=== PATIENT | male | born 1970 | race Caucasian/White ===

== ENCOUNTER 2021-02-15 00:59 | Inpatient (IN) | payer OTHER ==
[2021-02-15] MEDS ORDERED: Aspirin Chewable 81 MG TAB ONE ×2 (01:23→01:24)
[2021-02-15 01:29] LABS: #Basophils 0.1 10x3/uL (0.0-0.2); #Eosinphils 0.2 10x3/uL (0.0-0.5); #Monocytes 0.7 10x3/uL (0.0-1.1); #Neutrophils 5.7 10x3/uL (1.5-8.4); %Lymphocytes 29.5 % (18.0-47.0); %Monocytes 7.7 % (0.0-10.0); %Neutrophils 59.1 % (40.0-75.0); Hemoglobin 17.7 g/dL (13.5-17.5); Mean Corpuscular HGB CONC 36.2 g/dL (32.0-36.0); Mean Corpuscular Hemoglobin 31.6 pg (27.0-33.0); Mean Corpuscular Volume 87.2 fl (81.2-95.1); Platelet Count 308 10x3/uL (150-450); RBC Distribution Width 12.8 % (11.5-14.5); Red Blood Cell (RBC) Count 5.61 10x6/uL (4.32-5.72); White Blood Cell (WBC) Count 9.6 10x3/uL (3.5-10.5)
[2021-02-15] MEDS ORDERED: Nitroglycerin 2% Ointment 1 INCH/1 GM Packet ONE (01:30)
[2021-02-15 02:01] LABS: ALT (SGPT) 58 U/L (8-55); AST (SGOT) 27 U/L (5-34); Albumin 4.2 g/dL (3.5-5.0); Alkaline Phosphatase 86 U/L (40-110); Anion Gap 18 mmol/L (10-20); BUN (Urea Nitrogen) 21 mg/dL (8.9-20.6); Bilirubin, Total 0.5 mg/dL (0.2-1.2); Calc. Creatinine Clearance 0 mL/min (70-130); Calcium 9.2 mg/dL (7.8-10.44); Carbon Dioxide 20 mmol/L (22-29); Chloride 101 mmol/L (98-107); Glucose 398 mg/dL (70-105); Protein, Total 7.2 g/dL (6.0-8.3); Sodium 135 mmol/L (136-145)
[2021-02-15 03:14] LABS: SARS-CoV-2 NAA Rapid Test Not Detected (NotDetected)
[2021-02-15] MEDS ORDERED: Nitroglycerin 0.4 MG TAB (25 Tab Bottle) SL PRN (04:01)
[2021-02-15] MEDS ORDERED: Dextrose 50% Abboject 50 ML SYRINGE SLOW IVP PRN (04:09)
[2021-02-15] MEDS ORDERED: Dextrose 5% in Water 1,000 ML IV PRN (04:09)
[2021-02-15] MEDS ORDERED: Sodium Chloride 0.9% 1,000 ML IV SCH ×2 (04:15→16:00)
[2021-02-15] MEDS ORDERED: Insulin Regular 300 UNITS/3 ML VIAL IVP SCH (04:45)
[2021-02-15 05:16] VITALS: BMI 36.3
[2021-02-15] MEDS: HumaLOG 300 UNITS/3 ML VIAL SC PRN (05:19)
[2021-02-15 05:29] LABS: Cholesterol 217 mg/dl (< 200 Desired); HDL Cholesterol 31 mg/dL (>60 Neg Risk); Triglycerides 463 mg/dL (Less than 150)
[2021-02-15 05:35] LABS: Troponin I 0.306 ng/mL (< 0.028)
[2021-02-15] MEDS ORDERED: Enoxaparin Sodium 40 MG/0.4 ML SYRINGE SC SCH (09:00)
[2021-02-15 09:26] LABS: INR-International Normal Ratio 0.9; PTT 22.9 sec (22.0-33.0); Prothrombin Time 10.3 sec (9.5-12.1)
[2021-02-15 09:31] LABS: Hemoglobin A1c 7.6 % (4.0-6.0)
[2021-02-15] MEDS: Aspirin Chewable 81 MG TAB PO SCH (09:46)
[2021-02-15] MEDS: Nitroglycerin 2% Ointment 1 INCH/1 GM Packet TOP SCH ×3 (09:46→20:30)
[2021-02-15] MEDS: Lisinopril 20 MG TAB PO SCH (09:47)
[2021-02-15] MEDS: Hydrochlorothiazide 25 MG TAB PO SCH (09:47)
[2021-02-15 09:53] LABS: Troponin I 0.872 ng/mL (< 0.028)
[2021-02-15] MEDS: Enoxaparin Sodium 120 MG/0.8 ML SYRINGE SC SCH (10:00)
[2021-02-15] MEDS: Lantus 1000 UNITS/10 ML VIAL SC SCH (10:00)
[2021-02-15] MEDS: Acetaminophen 325 MG TAB PO PRN (12:08)
[2021-02-15] MEDS ORDERED: Nitroglycerin 50 MG/250 ML BOT 250 ML ONE (13:18)
[2021-02-15] MEDS ORDERED: Heparin 10,000 UNITS/ 10 ML VIAL ONE (13:18)
[2021-02-15] MEDS ORDERED: Lidocaine 1% (PF) 30 ML VIAL ONE (13:18)
[2021-02-15 13:19] LABS: CKMB 8.8 ng/mL (0-6.6)
[2021-02-15] MEDS ORDERED: Adenosine 6 MG/2 ML VIAL ONE (13:19)
[2021-02-15] MEDS ORDERED: Fentanyl 100 MCG/2 ML VIAL ONE (13:57)
[2021-02-15] MEDS ORDERED: Midazolam HCl 2 mg/2 ml Vial ONE (13:58)
[2021-02-15] MEDS ORDERED: Clopidogrel Bisulfate 300 MG TAB ONE (15:11)
[2021-02-15] MEDS ORDERED: cloNIDine 0.1 MG TAB ONE (15:29)
[2021-02-15] MEDS ORDERED: Acetaminophen/Codeine 30-300mg Tablet PO PRN ×2 (15:55)
[2021-02-15] MEDS ORDERED: Acetaminophen 500 MG TAB PO SCH (16:15)
[2021-02-15] MEDS ORDERED: Furosemide 40 MG/4 ML VIAL ONE (17:51)
[2021-02-15] MEDS ORDERED: Furosemide 40 MG/4 ML VIAL SLOW IVP SCH ×2 (18:00)
[2021-02-15] MEDS ORDERED: hydrALAZINE 20 MG/ML VIAL SLOW IVP SCH ×2 (18:15→20:30)
[2021-02-15] MEDS ORDERED: Metoprolol Tartrate 5 MG/5 ML VIAL IVP PRN (20:20)
[2021-02-15] MEDS ORDERED: Zolpidem Tartrate 5 MG TAB PO SCH (21:00)
[2021-02-15] MEDS ORDERED: Dexmedetomidine In 0.9 % NaCl 100 ML ONE (21:20)
[2021-02-15] MEDS: Atorvastatin Calcium 40 MG TAB PO SCH (21:41)
[2021-02-15] MEDS: Clopidogrel Bisulfate 75 MG TAB PO SCH (21:41)
[2021-02-15] MEDS ORDERED: niCARdipine 25 MG in Sodium Chloride 0.9% 250 ML 250 ML IVPB SCH (22:00)
[2021-02-15] MEDS ORDERED: Ondansetron PF 4 MG/2 ML Vial IVP PRN (22:00)
[2021-02-15] MEDS ORDERED: Lorazepam 2 MG/ML VIAL SLOW IVP SCH (22:15)
[2021-02-15] MEDS ORDERED: Lorazepam 2 MG/ML VIAL ONE ×2 (22:16→23:37)
[2021-02-16] MEDS ORDERED: Lorazepam 2 MG/ML VIAL SLOW IVP SCH
[2021-02-16] MEDS: Dexmedetomidine In 0.9 % NaCl 400 MCG in Premix Bag 1 BAG IVPB SCH ×5 (00:24→23:12)
[2021-02-16 01:09] LABS: #Monocytes 0.4 10x3/uL (0.0-1.1); #Neutrophils 15.1 10x3/uL (1.5-8.4); %Basophils 0.2 % (0.0-2.0); %Lymphocytes 3.8 % (18.0-47.0); %Monocytes 2.2 % (0.0-10.0); %Neutrophils 93.2 % (40.0-75.0); Hemoglobin 16.2 g/dL (13.5-17.5); Mean Corpuscular HGB CONC 36.7 g/dL (32.0-36.0); Mean Corpuscular Hemoglobin 31.1 pg (27.0-33.0); Mean Corpuscular Volume 84.8 fl (81.2-95.1); Mean Platelet Volume 11.2 fl (7.4-10.4); Platelet Count 291 10x3/uL (150-450); RBC Distribution Width 12.7 % (11.5-14.5); Red Blood Cell (RBC) Count 5.21 10x6/uL (4.32-5.72); White Blood Cell (WBC) Count 16.2 10x3/uL (3.5-10.5)
[2021-02-16 01:12] LABS: Actual Bicarbonate (HCO3a) 19.3 mEq/L (22-28); Base Excess (BEa) -2.1 mEq/L (-2.0 to +3.0); CO2 Tension 26.2 mmHg (35.0-45.0); Calcium, Ionized (arterial) 1.03 mmol/L (1.12-1.30); Carboxyhemoglobin (COHb) 0.9 gm% (0.0-3.0); Hemoglobin (Hb) 16.5 g/dL (14.0-18.0); O2 Tension (PaO2), arterial 48.4 mmHg (80.0-100.0); Puncture Site Other Site; pH, Arterial 7.49 (7.35-7.45)
[2021-02-16] MEDS ORDERED: Lorazepam 20 MG/10ML 100 MG in Sodium Chloride 0.9% 50 ML IVPB SCH ×2 (01:15→17:45)
[2021-02-16 01:26] LABS: Anion Gap 23 mmol/L (10-20); BUN (Urea Nitrogen) 14 mg/dL (8.9-20.6); Calc. Creatinine Clearance 131 mL/min (70-130); Calcium 8.5 mg/dL (7.8-10.44); Carbon Dioxide 17 mmol/L (22-29); Chloride 101 mmol/L (98-107); Glucose 364 mg/dL (70-105); Potassium 4.2 mmol/L (3.5-5.1); Sodium 137 mmol/L (136-145)
[2021-02-16 01:28] LABS: Magnesium 1.5 mg/dL (1.6-2.6)
[2021-02-16] MEDS ORDERED: Pantoprazole 40 MG VIAL IVP SCH (01:45)
[2021-02-16] MEDS: Nitroglycerin 2% Ointment 1 INCH/1 GM Packet TOP SCH ×4 (02:23→19:38)
[2021-02-16] MEDS: HumaLOG 300 UNITS/3 ML VIAL SC PRN ×4 (02:34→21:48)
[2021-02-16 03:27] LABS: Bilirubin Neg (Negative); Blood, Urine 250 (Negative); Clarity Slightly Cloudy (Clear); Glucose, Urine (Dipstick) >=1000 mg/dL (Negative); Ketone, Urine 50 mg/dL (Negative); Leukocyte 25 (Negative); Nitrite Negative (Negative); Protein, Urine (Dipstick) 15 mg/dl (Neg-Trace); Urobilinogen Normal mg/dL (Less than 2)
[2021-02-16 03:35] LABS: Bacteria/HPF None Seen HPF (None Seen); Mucous/LPF None Seen LPF (<2+); RBC/HPF 21-50 HPF (0-3); Squamous Epithelial 0-3 HPF (0-3); WBC/HPF 0-3 HPF (0-3)
[2021-02-16 04:06] LABS: #Monocytes 0.3 10x3/uL (0.0-1.1); #Neutrophils 10.7 10x3/uL (1.5-8.4); %Basophils 0.2 % (0.0-2.0); %Lymphocytes 5.1 % (18.0-47.0); %Monocytes 2.7 % (0.0-10.0); %Neutrophils 91.5 % (40.0-75.0); Hemoglobin 15.6 g/dL (13.5-17.5); Mean Corpuscular HGB CONC 36.8 g/dL (32.0-36.0); Mean Corpuscular Hemoglobin 31.3 pg (27.0-33.0); Platelet Count 239 10x3/uL (150-450); RBC Distribution Width 12.8 % (11.5-14.5); Red Blood Cell (RBC) Count 4.99 10x6/uL (4.32-5.72); White Blood Cell (WBC) Count 11.6 10x3/uL (3.5-10.5)
[2021-02-16 04:14] LABS: ALT (SGPT) 51 U/L (8-55); AST (SGOT) 22 U/L (5-34); Alkaline Phosphatase 82 U/L (40-110); Anion Gap 17 mmol/L (10-20); BUN (Urea Nitrogen) 14 mg/dL (8.9-20.6); Calc. Creatinine Clearance 137 mL/min (70-130); Calcium 8.6 mg/dL (7.8-10.44); Carbon Dioxide 21 mmol/L (22-29); Chloride 104 mmol/L (98-107); Globulin 2.7 g/dL (2.4-3.5); Glucose 298 mg/dL (70-105); Magnesium 1.6 mg/dL (1.6-2.6); Potassium 3.7 mmol/L (3.5-5.1); Protein, Total 6.7 g/dL (6.0-8.3); Sodium 138 mmol/L (136-145)
[2021-02-16 04:37] LABS: CKMB 3.4 ng/mL (0-6.6)
[2021-02-16] MEDS ORDERED: HumaLOG 300 UNITS/3 ML VIAL SC SCH (05:15)
[2021-02-16] MEDS ORDERED: FLU VACC QS2021-22(6MOS UP)/PF 60 MCG/0.5 ML SYRINGE IM ONE (09:00)
[2021-02-16] MEDS ORDERED: Potassium Chloride 20 MEQ in Premix Bag 1 BAG IVPB SCH (09:00)
[2021-02-16] MEDS ORDERED: Aspirin 300 MG Suppository PR SCH (09:00)
[2021-02-16] MEDS: Lantus 1000 UNITS/10 ML VIAL SC SCH (09:28)
[2021-02-16] MEDS ORDERED: PHENobarbital Sodium 65 MG/ML VIAL SLOW IVP SCH ×2 (10:30→11:00)
[2021-02-16] MEDS: Aspirin Chewable 81 MG TAB PO SCH (11:03)
[2021-02-16] MEDS: Hydrochlorothiazide 25 MG TAB PO SCH (11:34)
[2021-02-16] MEDS ORDERED: Enoxaparin Sodium 60 MG/0.6 ML SYRINGE SC SCH (14:30)
[2021-02-16] MEDS: PHENobarbital Sodium 65 MG/ML VIAL SLOW IVP SCH ×3 (15:07→23:11)
[2021-02-16 15:37] LABS: Actual Bicarbonate (HCO3v) 25 mEq/L (22-28); Base Excess 1.2 mEq/L (-2.0 to +3.0); Calcium, Ionized (venous) 1.15 mmol/L (1.16-1.32); Chloride (VBG) 103 mmol/L (98-106); Hemoglobin (Hb) 15.9 g/dL (13.1-17.2); Potassium (VBG) 3.76 mmol/L (3.70-5.30); Puncture Site RRA; Sodium 137.1 mmol/L (133-146); pH (venous) 7.43 (7.32-7.43)
[2021-02-16] MEDS: Clopidogrel Bisulfate 75 MG TAB PO SCH (18:25)
[2021-02-16] MEDS ORDERED: Pantoprazole 40 MG VIAL ONE (19:33)
[2021-02-16] MEDS: Pantoprazole 40 MG VIAL IVP SCH (19:38)
[2021-02-16] MEDS: Enoxaparin Sodium 40 MG/0.4 ML SYRINGE SC SCH (19:39)
[2021-02-16] MEDS: Atorvastatin Calcium 40 MG TAB PO SCH (21:45)
[2021-02-17] MEDS: HumaLOG 300 UNITS/3 ML VIAL SC PRN ×5 (00:05→08:24)
[2021-02-17] MEDS: PHENobarbital Sodium 65 MG/ML VIAL SLOW IVP SCH ×6 (02:55→21:52)
[2021-02-17] MEDS: Nitroglycerin 2% Ointment 1 INCH/1 GM Packet TOP SCH ×4 (02:55→21:36)
[2021-02-17] MEDS: Dexmedetomidine In 0.9 % NaCl 400 MCG in Premix Bag 1 BAG IVPB SCH ×3 (03:46→10:57)
[2021-02-17 06:33] LABS: Anion Gap 14 mmol/L (10-20); BUN (Urea Nitrogen) 20 mg/dL (8.9-20.6); Calc. Creatinine Clearance 137 mL/min (70-130); Calcium 8.7 mg/dL (7.8-10.44); Carbon Dioxide 24 mmol/L (22-29); Chloride 106 mmol/L (98-107); Glucose 207 mg/dL (70-105); Magnesium 2.1 mg/dL (1.6-2.6); Potassium 3.9 mmol/L (3.5-5.1); Sodium 140 mmol/L (136-145)
[2021-02-17 06:41] LABS: #Basophils 0.1 10x3/uL (0.0-0.2); #Eosinphils 0.1 10x3/uL (0.0-0.5); #Monocytes 0.8 10x3/uL (0.0-1.1); #Neutrophils 10.7 10x3/uL (1.5-8.4); %Basophils 0.4 % (0.0-2.0); %Eosinophils 0.6 % (0.0-6.0); %Lymphocytes 7.8 % (18.0-47.0); %Monocytes 6.5 % (0.0-10.0); %Neutrophils 84.2 % (40.0-75.0); Hemoglobin 14.9 g/dL (13.5-17.5); Mean Corpuscular HGB CONC 34.4 g/dL (32.0-36.0); Mean Platelet Volume 11.2 fl (7.4-10.4); Platelet Count 215 10x3/uL (150-450); RBC Distribution Width 12.8 % (11.5-14.5); Red Blood Cell (RBC) Count 4.81 10x6/uL (4.32-5.72); White Blood Cell (WBC) Count 12.8 10x3/uL (3.5-10.5)
[2021-02-17] MEDS: Lantus 1000 UNITS/10 ML VIAL SC SCH (08:24)
[2021-02-17] MEDS: Enoxaparin Sodium 120 MG/0.8 ML SYRINGE SC SCH (08:58)
[2021-02-17] MEDS: Aspirin Chewable 81 MG TAB PO SCH (10:34)
[2021-02-17] MEDS: Hydrochlorothiazide 25 MG TAB PO SCH (10:34)
[2021-02-17] MEDS: Lisinopril 20 MG TAB PO SCH (10:34)
[2021-02-17] MEDS ORDERED: Metoprolol Tartrate 5 MG/5 ML VIAL IVP SCH (15:00)
[2021-02-17] MEDS ORDERED: Enoxaparin Sodium 60 MG/0.6 ML SYRINGE SC SCH (18:00)
[2021-02-17] MEDS ORDERED: Thiamine HCl 200 MG/2 ML VIAL SLOW IVP SCH (21:30)
[2021-02-17] MEDS ORDERED: Multivitamins, Adult 10 ML, Thiamine HCl 100 MG, Folic Acid 1 MG in Dextrose 5 %-0.45 %... IV ONE (21:30)
[2021-02-17] MEDS: Lorazepam 2 MG/ML VIAL SLOW IVP PRN (21:36)
[2021-02-17] MEDS: Enoxaparin Sodium 40 MG/0.4 ML SYRINGE SC SCH (21:36)
[2021-02-17] MEDS: Pantoprazole 40 MG VIAL IVP SCH (21:36)
[2021-02-17] MEDS: Atorvastatin Calcium 40 MG TAB PO SCH (21:52)
[2021-02-17] MEDS: Clopidogrel Bisulfate 75 MG TAB PO SCH (21:52)
[2021-02-18] MEDS ORDERED: Metoprolol Tartrate 5 MG/5 ML VIAL IVP SCH ×3 (00:30→14:00)
[2021-02-18] MEDS: Dexmedetomidine In 0.9 % NaCl 400 MCG in Premix Bag 1 BAG IVPB SCH ×2 (00:33→10:38)
[2021-02-18] MEDS: Nitroglycerin 2% Ointment 1 INCH/1 GM Packet TOP SCH ×4 (03:14→21:00)
[2021-02-18] MEDS: Lorazepam 2 MG/ML VIAL SLOW IVP PRN (04:05)
[2021-02-18] MEDS: HumaLOG 300 UNITS/3 ML VIAL SC PRN ×3 (04:56→23:45)
[2021-02-18] MEDS ORDERED: PHENobarbital Sodium 65 MG/ML VIAL SLOW IVP SCH (06:00)
[2021-02-18 06:13] LABS: #Basophils 0.1 10x3/uL (0.0-0.2); #Eosinphils 0.1 10x3/uL (0.0-0.5); #Monocytes 0.8 10x3/uL (0.0-1.1); #Neutrophils 8.9 10x3/uL (1.5-8.4); %Basophils 0.4 % (0.0-2.0); %Lymphocytes 10.9 % (18.0-47.0); %Monocytes 6.9 % (0.0-10.0); %Neutrophils 80.3 % (40.0-75.0); Hemoglobin 14.7 g/dL (13.5-17.5); Mean Corpuscular HGB CONC 35.4 g/dL (32.0-36.0); Mean Corpuscular Hemoglobin 30.9 pg (27.0-33.0); Mean Corpuscular Volume 87.4 fl (81.2-95.1); Mean Platelet Volume 10.7 fl (7.4-10.4); Platelet Count 209 10x3/uL (150-450); RBC Distribution Width 12.8 % (11.5-14.5); Red Blood Cell (RBC) Count 4.75 10x6/uL (4.32-5.72); White Blood Cell (WBC) Count 11.1 10x3/uL (3.5-10.5)
[2021-02-18 06:15] LABS: ALT (SGPT) 36 U/L (8-55); AST (SGOT) 20 U/L (5-34); Albumin 3.8 g/dL (3.5-5.0); Alkaline Phosphatase 87 U/L (40-110); Anion Gap 17 mmol/L (10-20); BUN (Urea Nitrogen) 13 mg/dL (8.9-20.6); Bilirubin, Total 1.6 mg/dL (0.2-1.2); Calc. Creatinine Clearance 153 mL/min (70-130); Calcium 8.7 mg/dL (7.8-10.44); Carbon Dioxide 21 mmol/L (22-29); Chloride 105 mmol/L (98-107); Globulin 3.1 g/dL (2.4-3.5); Glucose 247 mg/dL (70-105); Magnesium 2.1 mg/dL (1.6-2.6); Phosphorus 2.7 mg/dL (2.3-4.7); Potassium 3.4 mmol/L (3.5-5.1); Protein, Total 6.9 g/dL (6.0-8.3); Sodium 140 mmol/L (136-145)
[2021-02-18] MEDS ORDERED: Aspirin 300 MG Suppository PR SCH (09:00)
[2021-02-18] MEDS: Lisinopril 20 MG TAB PO SCH ×2 (09:07→14:25)
[2021-02-18] MEDS: Hydrochlorothiazide 25 MG TAB PO SCH (09:07)
[2021-02-18] MEDS: Lantus 1000 UNITS/10 ML VIAL SC SCH (09:08)
[2021-02-18] MEDS: Clopidogrel Bisulfate 75 MG TAB PO SCH (14:26)
[2021-02-18] MEDS: Atorvastatin Calcium 40 MG TAB PO SCH (21:01)
[2021-02-18] MEDS: Pantoprazole 40 MG VIAL IVP SCH (21:01)
[2021-02-18] MEDS: Enoxaparin Sodium 40 MG/0.4 ML SYRINGE SC SCH (21:01)
[2021-02-18] MEDS: Labetalol HCl 100 MG/20 ML VIAL SLOW IVP PRN (22:12)
[2021-02-18] MEDS ORDERED: Nitroglycerin 2% Ointment 1 INCH/1 GM Packet TOP SCH (22:15)
[2021-02-18] MEDS: Acetaminophen 325 MG TAB PO PRN (22:16)
[2021-02-19] MEDS: Nitroglycerin 2% Ointment 1 INCH/1 GM Packet TOP SCH ×5 (01:54→21:22)
[2021-02-19] MEDS: Hydrochlorothiazide 25 MG TAB PO SCH (08:33)
[2021-02-19] MEDS: Aspirin 81 mg Enteric Coated Tablet PO SCH (08:33)
[2021-02-19] MEDS: Lisinopril 20 MG TAB PO SCH ×2 (08:33→21:14)
[2021-02-19] MEDS: Lantus 1000 UNITS/10 ML VIAL SC SCH (08:35)
[2021-02-19] MEDS: HumaLOG 300 UNITS/3 ML VIAL SC PRN ×2 (08:35→11:58)
[2021-02-19] MEDS ORDERED: Potassium Chloride 20 MEQ TAB PO SCH (13:00)
[2021-02-19] MEDS: Labetalol HCl 100 MG/20 ML VIAL SLOW IVP PRN (16:59)
[2021-02-19] MEDS: Atorvastatin Calcium 40 MG TAB PO SCH (21:14)
[2021-02-19] MEDS: Pantoprazole 40 MG VIAL IVP SCH (21:14)
[2021-02-19] MEDS: Enoxaparin Sodium 40 MG/0.4 ML SYRINGE SC SCH (21:15)
[2021-02-19] MEDS ORDERED: Clopidogrel Bisulfate 300 MG TAB PO SCH (21:15)
[2021-02-19] MEDS ORDERED: Clopidogrel Bisulfate 75 MG TAB PO SCH (21:30)
[2021-02-19] MEDS: Clopidogrel Bisulfate 75 MG TAB PO SCH (21:35)
[2021-02-19] MEDS ORDERED: Zolpidem Tartrate 5 MG TAB PO SCH (23:00)
[2021-02-20] MEDS: Nitroglycerin 2% Ointment 1 INCH/1 GM Packet TOP SCH ×2 (02:26→08:42)
[2021-02-20] MEDS: HumaLOG 300 UNITS/3 ML VIAL SC PRN ×2 (06:44→12:27)
[2021-02-20] MEDS ORDERED: Guaifenesin DM 100-10/5 ML UDCUP PO PRN (07:34)
[2021-02-20] MEDS: Aspirin 81 mg Enteric Coated Tablet PO SCH (08:35)
[2021-02-20] MEDS: Lantus 1000 UNITS/10 ML VIAL SC SCH (08:36)
[2021-02-20 11:28] LABS: Anion Gap 15 mmol/L (10-20); BUN (Urea Nitrogen) 13 mg/dL (8.9-20.6); Calc. Creatinine Clearance 133 mL/min (70-130); Calcium 9.2 mg/dL (7.8-10.44); Carbon Dioxide 22 mmol/L (22-29); Chloride 100 mmol/L (98-107); Glucose 271 mg/dL (70-105); Potassium 3.8 mmol/L (3.5-5.1); Sodium 133 mmol/L (136-145)
[2021-02-20] MEDS: Lisinopril 20 MG TAB PO SCH (11:46)
[2021-02-20] MEDS: Hydrochlorothiazide 25 MG TAB PO SCH (11:47)
[2021-02-20 12:08] VITALS: BP 164/92; TEMP 97.9
[2021-02-20] MEDS ORDERED: Zolpidem Tartrate 5 MG TAB PO SCH (21:00)
[2021-02-20] MEDS ORDERED: Clopidogrel Bisulfate 75 MG TAB PO SCH (21:00)
== END 2021-02-20 15:50 | disposition home or self-care (01) | DRG 246 ==
LOC: CSHERS 00:59 → CSHTELE 03:24 → OBSVTOIN 04:01 → CSHIMCU 20:16 → CSHTELE 02-19 16:50
PROVIDERS: ADMIT Family Medicine; ATTEND Internal Medicine
PROC: 027034Z Dilation of Coronary Artery, One Artery with Drug-eluting Intraluminal Device, Percutaneous Approach (ICD-10-PCS; principal; 2021-02-15)
PROC: 4A023N7 Measurement of Cardiac Sampling and Pressure, Left Heart, Percutaneous Approach (ICD-10-PCS; 2021-02-15)
PROC: B2111ZZ Fluoroscopy of Multiple Coronary Arteries using Low Osmolar Contrast (ICD-10-PCS; 2021-02-15)
PROC: B2151ZZ Fluoroscopy of Left Heart using Low Osmolar Contrast (ICD-10-PCS; 2021-02-15)
PROC: B241ZZ3 Ultrasonography of Multiple Coronary Arteries, Intravascular (ICD-10-PCS; 2021-02-15)
DX: I21.4 Non-ST elevation (NSTEMI) myocardial infarction (principal); G93.41 Metabolic encephalopathy; E87.3 Alkalosis; E87.2 Acidosis; F15.23 Other stimulant dependence with withdrawal; I42.9 Cardiomyopathy, unspecified; Z20.822 Contact with and (suspected) exposure to COVID-19; I10 Essential (primary) hypertension; K21.9 Gastro-esophageal reflux disease without esophagitis; F90.9 Attention-deficit hyperactivity disorder, unspecified type; E11.65 Type 2 diabetes mellitus with hyperglycemia; E66.9 Obesity, unspecified; E78.5 Hyperlipidemia, unspecified; I25.10 Atherosclerotic heart disease of native coronary artery without angina pectoris; G47.33 Obstructive sleep apnea (adult) (pediatric); Z79.899 Other long term (current) drug therapy; Z98.890 Other specified postprocedural states; Z68.36 Body mass index [BMI] 36.0-36.9, adult
CPT/HCPCS: 36415; 36416; 36600; 70450; 70551; 71045; 80048; 80053; 80061; 81001; 82553; 82805; 83036; 83735; 84100; 84300; 84484; 85025; 85379; 85610; 85730; 87040; 87086; 92928; 92978; 92979; 93005; 93010; 93306; 93458; 97139; 99152; 99153; C1725; C1753; C1887; C9113; C9600; J0153; J0360; J1644; J1650; J1815; J1940; J2001; J2060; J2250; J2405; J2560; J3010; J3411; J3475; J3480; J3490; J7042; J7050; U0002